=== PATIENT | male | born 1970 | race Caucasian/White ===

== ENCOUNTER → 2019-09-10 06:00 | Outpatient (CLI) | payer OTHER | END | disposition home or self-care (01) | LOC: LAB 06:00 → EDSTATUS 09-17 08:10 → CIR.AMB 09-17 10:50 | DX: K40.90 Unilateral inguinal hernia, without obstruction or gangrene, not specified as recurrent (principal) ==

== ENCOUNTER 2019-11-05 05:50 | Day surgery (SDC) | payer OTHER | END 2019-11-05 17:00 | disposition home or self-care (01) | LOC: CIR.AMB 05:50 | DX: K40.90 Unilateral inguinal hernia, without obstruction or gangrene, not specified as recurrent (principal) ==

== ENCOUNTER 2020-02-13 11:17 | Outpatient (CLI) | payer OTHER | END 2020-02-13 11:22 | disposition home or self-care (01) | LOC: RAD 11:17 | PROVIDERS: ATTEND Internal Medicine | DX: M54.5 Low back pain (principal); I10 Essential (primary) hypertension; E03.8 Other specified hypothyroidism; Z01.811 Encounter for preprocedural respiratory examination; Z12.11 Encounter for screening for malignant neoplasm of colon; N41.0 Acute prostatitis; Z87.891 Personal history of nicotine dependence; N41.8 Other inflammatory diseases of prostate ==

== ENCOUNTER 2022-04-13 11:09 | Outpatient (CLI) | payer OTHER | END 2022-04-13 11:21 | disposition home or self-care (01) | LOC: RAD 11:09 | PROVIDERS: ATTEND Physical Medicine & Rehabilitation | DX: M79.642 Pain in left hand (principal); M79.641 Pain in right hand; M79.672 Pain in left foot; M79.671 Pain in right foot ==

== ENCOUNTER 2024-04-17 10:47 | Outpatient (CLI) | payer OTHER | END 2024-04-17 10:54 | disposition home or self-care (01) | LOC: RAD 10:47 | PROVIDERS: ATTEND Internal Medicine | DX: I10 Essential (primary) hypertension (principal); M23.90 Unspecified internal derangement of unspecified knee; G43.119 Migraine with aura, intractable, without status migrainosus ==

== ENCOUNTER 2024-06-24 12:25 | Outpatient (CLI) | payer OTHER | END 2024-06-24 12:40 | disposition home or self-care (01) | LOC: TOM 12:25 | PROVIDERS: ATTEND Physical Medicine & Rehabilitation | DX: M79.672 Pain in left foot (principal); M79.671 Pain in right foot ==